=== PATIENT | female | born 1965 | race Caucasian/White ===

== ENCOUNTER 2018-11-04 22:37 | Emergency (ER) | payer BC ==
[2018-11-04 23:50] LABS: #Basophils 0.1 thou/uL (0.0-0.2); #Eosinphils 0.2 thou/uL (0.0-0.7); #Lymphocytes 1.9 thou/uL (1.20-3.40); #Monocytes 0.4 thou/uL (0.11-0.59); #Neutrophils 5.1 thou/uL (1.40-6.50); %Basophils 0.8 % (0.0-1.0); %Eosinophils 2.1 % (0.0-10.0); %Lymphocytes 25.3 % (21.0-51.0); %Monocytes 5.7 % (0.0-10.0); %Neutrophils 66.2 % (42.0-75.0); Hemoglobin 14.2 g/dL (12.0-16.0); Mean Corpuscular HGB CONC 34.9 g/dL (32.0-36.0); Mean Corpuscular Hemoglobin 32.7 pg (27.0-31.0); Mean Corpuscular Volume 93.8 fL (78.0-98.0); Mean Platelet Volume 7.8 fL (7.4-10.4); Platelet Count 208 thou/uL (130-400); RBC Distribution Width 11.5 % (11.5-14.5); Red Blood Cell (RBC) Count 4.34 mill/uL (4.20-5.40); White Blood Cell (WBC) Count 7.6 thou/uL (4.8-10.8)
--- NOTE | 2018-11-04 23:51 | RAD ---
2 views chest: 11/04/2018 HISTORY: Chest pain, syncope FINDINGS: The lungs are clear. Heart and mediastinal contours are unremarkable. IMPRESSION: No acute findings.
[2018-11-05 00:01] LABS: BHCG - Serum Negative (NEGATIVE); Pregs Control Background? CLEAR/WHITE (CLR/WHITE); Pregs Control Bar Appear? YES (CONTROL BAR)
[2018-11-05] MEDS ORDERED: Aspirin Chewable 81 MG TAB ONE (00:02)
[2018-11-05] MEDS ORDERED: Mag-Al 1200 mg/1200 mg/30 ML UDCUP ONE (00:05)
[2018-11-05] MEDS ORDERED: Acetaminophen 500 MG TAB ONE (00:05)
[2018-11-05] MEDS ORDERED: Lidocaine Viscous Sol 2% 15 ml UD Cup ONE (00:05)
[2018-11-05] MEDS ORDERED: Famotidine/PF 20 mg/2ml Vial ONE (00:06)
[2018-11-05 00:11] LABS: ALT (SGPT) 25 U/L (8-55); AST (SGOT) 20 U/L (5-34); Acetaminophen Less than 6.0 mcg/mL (10.0-30.0); Albumin 4.2 g/dL (3.5-5.0); Alcohol 250 mg/dL (Less than 10); Alkaline Phosphatase 66 U/L (40-150); Anion Gap 11 mmol/L (10-20); BUN (Urea Nitrogen) 9 mg/dL (9.8-20.1); Bilirubin, Total 0.3 mg/dL (0.2-1.2); Calc. Creatinine Clearance 0 mL/min (70-130); Carbon Dioxide 26 mmol/L (22-29); Chloride 110 mmol/L (98-107); Estimated GFR-MDRD 69; Globulin 2.6 g/dL (2.4-3.5); Glucose 123 mg/dL (70-105); Potassium 3.8 mmol/L (3.5-5.1); Protein, Total 6.8 g/dL (6.0-8.3); Salicylate Less than 8.0 mg/dL (15.0-30.0); Sodium 143 mmol/L (136-145)
[2018-11-05] MEDS ORDERED: Adacel (T-DAP) 0.5 ML SYRINGE ONE (01:30)
--- NOTE | 2018-11-05 07:19 | CT ---
PRELIMINARY REPORT/[facility]/EMERGENCY AFTER HOURS PROCEDURE: PROCEDURE INFORMATION: Exam: CT Angiography Chest With Contrast Exam date and time: 11/05/2018 12:37 AM Clinical history: 52 years old, female; Patient HX: 52 yo F presents to ED with C/O chest pain. PT re ports chest pain, but is unable to describe how it feels or when it started. TECHNIQUE: Imaging protocol: Computed tomographic angiography of the chest with intravenous contrast. 3D rendering: MIP reconstructed images were created and reviewed. COMPARISON: No relevant prior studies available. FINDINGS: Pulmonary arteries: Normal. No pulmonary emboli. Aorta: No traumatic aortic injury. No mediastinal hematoma, pneumomediastinum, or hemopericardium. Lungs: No pulmonary contusion. Pleural space: No pneumothorax or hemothorax. Heart: Unremarkable. No cardiomegaly. No pericardial effusion. Mediastinum: Esophagus is unremarkable. Adrenals: Left adrenal adenoma. Lymph nodes: Unremarkable. No enlarged lymph nodes. Bones/joints: Subtle acute fracture of the anterior mid body of the sternum. Soft tissues: Subcutaneous right anterior chest wall contusion. IMPRESSION: 1. Subtle acute fracture of the anterior mid body of the sternum. 2. Subcutaneous right anterior chest wall contusion. Thank you for allowing us to participate in the care of your patient. Dictated and Authenticated by: Glenn Alcazar MD 11/05/2018 12:57 AM Central Time ([place] & [place]) FINAL REPORT EMERGENCY AFTER HOURS CTA CHEST: IMPRESSION: I agree with the preliminary report provided by [facility]. There is reticulation of the subcutaneous fat overlying the right chest wall with very subtle nondisp laced cortical irregularity involving the anterior sternal body suspicious for fracture. There is no mediastinal hematoma grossly evident. No central or segmental pulmonary embolus is noted. Recommend c orrelation for history of trauma. POS: BH
[2018-11-05] MEDS ORDERED: ISOVUE-370 76%-LOCM 1 ML ONE (12:58)
== END 2018-11-05 01:50 | disposition home or self-care (01) ==
LOC: ERS 22:37
DX: S22.22XA Fracture of body of sternum, initial encounter for closed fracture (principal); F10.129 Alcohol abuse with intoxication, unspecified; Z71.6 Tobacco abuse counseling; Z23 Encounter for immunization; Y90.8 Blood alcohol level of 240 mg/100 ml or more; X58.XXXA Exposure to other specified factors, initial encounter
CPT/HCPCS: 36415; 71046; 71275; 80053; 80307; 83690; 83735; 84484; 84703; 85025; 85379; 90471; 90715; 93005; 96374; 99406; Q9966; S0028

== ENCOUNTER 2019-09-16 05:26 | Emergency (ER) | payer BC, OTHER | END 2019-09-16 06:05 | disposition home or self-care (01) | LOC: ERS 05:26 | DX: S06.9X9A Unspecified intracranial injury with loss of consciousness of unspecified duration, initial encounter (principal); W22.03XA Walked into furniture, initial encounter | CPT/HCPCS: 36416; 93005 ==